=== PATIENT | male | born 1940 | race Caucasian/White ===

== ENCOUNTER 2016-10-15 05:58 | Observation (INO) ==
[2016-10-15] MEDS ORDERED: ceFAZolin 1,000 MG VIAL IRRIG ONE (06:00)
[2016-10-15] MEDS ORDERED: diphenhydrAMINE CAP 25 MG CAPSULE PO ONE (06:00)
[2016-10-15] MEDS ORDERED: SODIUM CHLORIDE 0.9% 1,000 ML IV SCH ×2 (06:00)
[2016-10-15] MEDS ORDERED: DIAZEPAM 5 MG TABLET PO ONE (06:00)
[2016-10-15] MEDS ORDERED: ceFAZolin 1,000 MG VIAL ONE ×2 (06:13→07:19)
--- NOTE | 2016-10-15 06:38 | History and Physical Update ---
Sedation H&P Update - History and Physical H&P was reviewed, the patient examined and there: are no changes in the patients condition since last H&P was completed. - Dictation Physical: refer to scanned H&P - Physical Exam Mental Status: alert and oriented Heart: regular rate and rhythm Lung: clear to auscultation Abdomen: within normal limits Vitals: within normal limits History and Physical Changes: None - Sedation Plan for Sedation: moderate Patient Consent: Procedure disscussed with patient and patinet has consented., Risks and benefits were discussed with patient,including infection,, bleeding, injury to surrounding structures, seizure, temporary nerve, Patient understands and accepts potential risks/benefits and agrees to, proceed. ASA Class: III Airway Assessment: Class III: Soft palate, base of uvula visible
--- NOTE | 2016-10-15 06:38 | Event Note ---
The patient today is for pacemaker generator change and new pacemaker lead. The patient is having issues with stimulation through his old pacemaker lead secondary insulation issues were as discussed previously. Again reviewed the findings with the patient and his reviewing indications of the procedure situation. I reviewed with him how the procedure be carried out the risk. I discussed pacemaker implantation procedure with the patient and available family. I reviewed with them the indications of the procedure as well as the basis of how the procedure itself would be carried out. I also reviewed with them the possible risks which include but not necessarily limited to surgical site bruising pain swelling or pocket hematoma that may require surgical evacuation. Discussed that the pain, swelling, bruising could be significant. Also discussed the possibility of surgical site or pocket infection that may require oral or IV antibiotics or even the possibility of surgical drainage of the pocket or even removal of the pacemaker system. Also discussed the possibility of hemothorax or pneumothorax that may require chest tube and possible blood transfusion. Also discussed the possibility of myocardial perforation that may lead to pericardial tamponade and the need for pericardiocentesis and blood transfusion. They voice understanding and agree to proceed. We will proceed this morning.
[2016-10-15] MEDS ORDERED: DIAZEPAM 5 MG TABLET ONE (06:50)
[2016-10-15] MEDS ORDERED: diphenhydrAMINE CAP 25 MG CAPSULE ONE (06:51)
[2016-10-15] MEDS ORDERED: LIDOCAINE 1% 20 ML VIAL ONE (07:19)
[2016-10-15] MEDS ORDERED: MIDAZOLAM 2 MG/2 ML VIAL ONE ×2 (07:23→07:33)
[2016-10-15] MEDS ORDERED: fentaNYL 100 MCG/2 ML VIAL ONE (07:24)
[2016-10-15] MEDS ORDERED: diphenhydrAMINE 50 MG/1 ML VIAL ONE (07:34)
--- NOTE | 2016-10-15 08:09 | EKG Report ---
Stationary ECG Study [facility] Test Date: 10/15/2016 6:36:25 AM Pat Name: KARIN BURK Department: Room: C006 Gender: M [place] [employer]: : 1940 Requested by: Karin Dickerson Order Number: [id number] Reading MD: JOELLE REYES Intervals [place] Rate: 62 P: 999 PA: 0 QRS: -55 QRSD: 126 T: -29 QT: 432 QTc: 437 Interpretive Statements UNDERTERMINED RHYTHM LEFT ANTERIOR FASCICULAR BLOCK POSSIBLE LATERAL INFARCT, PREVIOUSLY DOCUMENTED Electronically Signed On 10-15-16 18:59:44 CDT by JOELLE REYES [email or web address]
[2016-10-15] MEDS ORDERED: HYDROmorphone 2 MG/1 ML VIAL ONE (08:12)
[2016-10-15] MEDS ORDERED: TISSUE ADHESIVE 1 EACH APPLICATOR TOP ONE (08:26)
--- NOTE | 2016-10-15 08:51 | XRay Report ---
History is follow-up pacemaker Comparison 01/27/2011 Mediastinal contours unchanged with a pacemaker present Calcified left basal granuloma again seen. Skinfold overlies the lateral right chest. No consolidated infiltrate seen Impression: Stable portable chest PROCEDURE INTERPRETED AT [facility] DEPARTMENT OF RADIOLOGY Final Report Signed by: Dr. Bianca Kaur
[2016-10-15] MEDS ORDERED: ACETAMINOPHEN 325 MG TABLET PO PRN (08:58)
--- NOTE | 2016-10-15 08:58 | Operative Note ---
Date of procedure: 10/15/16 Procedure Preformed: Pacemaker generator extraction with placement of new right ventricular lead and implantation of new pacemaker generator. Surgeon / Physician: Adair Collins Account Specialist: Jake Mayorga Post-op diagnosis: same Findings: Right ventricular lead with insulation issues and inappropriate tissue stimulation. Successful generator change and new right ventricular lead placement. Specimens: none sent Estimated blood loss: minimal Condition: stable Anesthesia: local, conscious sedation Disposition: floor
[2016-10-15] MEDS ORDERED: ALUMINUM/MAGNES/SIMETH MAX STR 30 ML UDCUP PO PRN (09:04)
[2016-10-15] MEDS ORDERED: ZALEPLON 5 MG CAPSULE PO PRN (09:04)
--- NOTE | 2016-10-15 09:22 | Cardiac Pacemaker ---
- Preoperative diagnosis Date of Procedure:: 10/15/16 Preoperative Diagnosis: Documented nonreversible symptomatic bradycardia due to , sinus node dysfunction Pre-op Diagnosis: 75-year-old man with sick sinus syndrome due to sinus node dysfunction with symptomatic bradycardia. Patient has right ventricular lead with insulation issue with tissue stimulation. Patient for pacemaker generator change which is 10 years old and RV lead replacement. Post-op diagnosis: same Procedure: History: 75-year-old man who has sick sinus syndrome due to sinus node dysfunction with symptomatic bradycardia. He atrially paces nearly 100% of the time. His ventricular lead though has insulation issue causing tissue stimulation even at unipolar programming. The patient needs a right ventricular lead and new pacemaker generator. 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 Postop diagnosis: As above with successful new generator implantation and new right ventricular lead placement. Procedures: 1. Pacemaker pocket and pacemaker lead fluoroscopy and cinematography. 2. Surgical extraction of pacemaker generator 3. Threshold testing of right atrial lead. 4. Capping of right ventricular lead. 5. Fluoroscopic positioning and implantation of new right ventricular lead. 4. Surgical implantation dual-chamber pacemaker generator left chest. Contrast: None Medications: Preoperative Benadryl and Valium given orally. Lidocaine 18 mls local anesthesia, Versed 4 mgms total IVP; fentanyl 100 mcgs total IVP, Benadryl 50 mg IVP, Dilaudid 2 mg IVP, Ancef 1 gm IVPB, Ancef flush. Estimated blood loss: Minimal Sponge count: Correct Pacemaker equipment: 1. Pacemaker generator extracted: Medtronic Adapta,model # [id number], serial #[id number]. 2. Pacemaker generator inplanted: Medtronic Adapta,model#ADDR 01, serial#[id number]. 3. Atrial lead: Medtronic model#5076-52, serial #[id number]. This is a chronic lead implanted 05/13/2000. Sensed P-wave is 3.4 mv. At a pulse width of 0.5 ms the threshold is 0.4 volts, current 0.6 mA, resistance 476 ohms, slew rate 1.2. 4. Old ventricular lead: Medtronic model#4024- 52, serial#[id number]. This is a chronic lead implanted 05/13/2000. Not interrogated. 5. New ventricular lead: Medtronic model#5076-58, serial# [id number]. This is a chronic lead implanted 10/15/2016. Sensed R-wave is 9.6 mv. At a pulse width of 0.5 ms the threshold is 0.7 volts, current 0.8 mA, resistance 864 ohms, slew rate 2.7. Discription of procedure: After informed consent the patient was given preoperative medication. They were then brought to the catheterization laboratory where their upper chest was prepped and draped in the usual sterile fashion. Patient then received IV sedation. Fluoroscopy and cinematography was used to obtain position of the pacemaker generator and pacemaker leads. Local anesthesia with lidocaine below the left clavicle along the old scar line was administered. Sharp dissection with scalpel was then used to cut through the skin and subcutaneous tissue along the old scar line to the pacemaker pocket. Blunt dissection was used as well especially entering the pocket. At this point the left subclavian vein was cannulated using a micro needle through which the guidewire was advanced over which the pacemaker sheath was then advanced. Through this sheath a new right ventricular lead was then advanced with a stylette in place. The lead was positioned with multiple attempts until we had appropriate thresholds as well as sensing and impedance. Once this was achieved the lead was sutured in position after the sheath was peeled away. At this point the old pacemaker generator was extracted from the pacemaker pocket and disconnected from the pacemaker leads. Antibiotic sponge was placed in the pocket. The atrial lead thresholds were tested and were stable. Final testing of the new right ventricular lead and right atrial lead was carried out and remained stable. The old right ventricular lead was capped. Antibiotic sponge was removed from the pocket and the pocket irrigated with antibiotic solution. The new pacemaker generator was then connected to the ventricular and atrial leads. Each lead was identified by its serial number and then placed into the appropriate header position. Each header set screw was tightened on the appropriate lead and then each lead was tugged on demonstrating it was well seated. Counts were correct. Pacemaker generator was then placed into the pocket and sutured in position with one stitch of 2-0 Ethibond. Pacemaker pocket was then closed using 2 layers of 3-0 Vicryl and one subreticular layer of 4-0 Vicryl. Exofin was used to seal the wound. Patient, tolerated the procedure well and there were no immediate complications. Discussed findings with the patient's family post procedure. Patient was taken to their room on telemetry. Implants: See above Anesthesia: local, moderate conscious sedation Surgeon / Physician: Adair Collins Quality Control Inspector: other (Quintin Mayorga RN) Estimated blood loss: minimal Specimens: none sent Condition: stable Disposition: floor - Medications / Follow-up
--- NOTE | 2016-10-15 09:45 | XRay Report ---
XR chest 1V portable Indication: Lead placement. Chest one view: Comparison 0602 hours. Third pacemaker lead is now present and the generator component has an extra plug. No pneumothorax shown. Normal heart size and interstitial prominence of the lungs are stable. Scattered calcified granulomata are unchanged as well. Impression: Aside from revision of pacemaker device, no change. PROCEDURE INTERPRETED AT [facility] DEPARTMENT OF RADIOLOGY Final Report Signed by: Adair Farris M.D.
--- NOTE | 2016-10-15 14:34 | Event Note ---
Patient doing well post pacemaker implantation. His chest x-ray is stable. The patient is having really no substantial significant pain. Plans to be discharged tomorrow.
--- NOTE | 2016-10-15 16:29 | Discharge Summary ---
Hospital Course - Hospital Course Hospital Course: Patient admitted for pacemaker generator change of placement of new right ventricular lead. The patient has insulation issues with his right ventricular lead with tissue stimulation and discomfort. The patient underwent pacemaker generator change and placed in the right ventricular lead without any complications. Patient done well post procedure. He discussed the patient's activities etc. with him. He will keep follow-up with me within 2 weeks. I saw Mr. Zambrano the morning after his pacemaker implant. He was without complaint he had mild tenderness over his access site but the site looked excellent. His chest x-ray was reviewed it looks good. He has handwritten prescription by Dr. Collins for his pain medicine. We will discharge home and follow-up as ordered. Diagnosis - Discharge Diagnosis (1) Pacemaker lead malfunction Status: Acute (2) Sick sinus syndrome due to SA node dysfunction Status: Chronic (3) Bradycardia Status: Chronic (4) Dyslipidemia Status: Chronic (5) Hypertension Status: Chronic Specialty Discharge - Follow Up or Referrals Follow up with: Adair Collins MD [Physician] - 10/29/16 8:20 am Discharge Plan - Discharge Data Disposition: Disch To Home/Self Care Condition at Discharge: Stable Discharge Diet: heart healthy Activity: other (Do not lift left hand above shoulder nor the elbow away from the body core for 2 weeks.) Hygiene: other (Do not get pacemaker site wet for 4 days after which may allow water and shower to briefly run over the wound. Do not soak pacemaker site or allow shower water to directly strike the wound for 2 weeks.) Weight Bearing at Discharge: full weight bearing Driving: not for (For 2 weeks.) Contact your physician if you experience:: fever over 101, Redness or swelling, Shortness of breath - Discharge Medications New Hydrocodone/Acetaminophen [Flushing 10-325 Tablet] 1 each PO Q4-6H PRN #20 tablet PRN Reason: Pain Mild To Moderate (1-7) Continue Escitalopram [Lexapro] 20 mg PO DAILY Calcium (Citrate) [Citracal] 200 mg PO DAILY Multivitamin [Multivitamins] 1 each PO DAILY Cyanocobalamin (Vitamin B-12) [Vitamin B12] 2,500 mcg PO DAILY - Follow Up or Referral Follow Up: Adair Collins MD [Physician] - 10/29/16 8:20 am - Forms/Instructions Instructions: Pacemaker (DC), Chronic Hypertension (DC) Exam - Constitutional Vitals: Period Temp Pulse Resp BP Sys/[place] Pulse Ox Last 24 Hr 96.6 F-98.7 F 61-70 18-20 93-168/47-89 91-98 Exam: General appearance: Alert cooperative no distress. HEENT: Atraumatic. Neck: Supple without JVD or bruits. Lungs: Clear without rales or wheezes. Cardiovascular regular rate and rhythm without murmur gallop or rub. Chest wall: Pacemaker site left chest is stable. Abdomen: Soft nontender with normal bowel sounds. Extremities: No edema or deformities. Neurologic: Alert cooperative without deficits. Psychiatric: Cognitive function is grossly intact. Skin: Intact. Discharge Results Procedures and tests throughout hospitalization: Pending Orders 10/15/16 06:00 CL pacemaker Routine Successful pacemaker generator change and RV lead placement with capping of the old lead. DS: Provider Date of admission: 10/15/16 08:58 Primary care physician: Evelina Bhatti MD Attending physician on admission: Mann Gottlieb Discharging clinician: Mann Gottlieb Expected date of discharge: 10/15/16
[2016-10-15] MEDS: IBUPROFEN 400 MG TABLET PO PRN (16:33)
[2016-10-16] MEDS: IBUPROFEN 400 MG TABLET PO PRN (06:05)
--- NOTE | 2016-10-16 07:28 | EKG Report ---
Stationary ECG Study [facility] Test Date: 10/16/2016 7:28:03 AM Pat Name: KARIN BURK Department: Room: 268 Gender: M Hospital Nurse Liaison: : 1940 Requested by: Karin Dickerson Order Number: [id number] Reading MD: BILLIE PALMER Intervals [place] Rate: 64 P: 27 TN: 175 QRS: 48 QRSD: 155 T: -85 QT: 475 QTc: 484 Interpretive Statements ELECTRONIC ATRIAL PACEMAKER ELECTRONIC VENTRICULAR PACEMAKER ABNORMAL RHYTHM ECG Electronically Signed On 10-18-16 10:52:46 CDT by BILLIE PALMER [email or web address]
[2016-10-16 07:37] VITALS: BP 126/89
--- NOTE | 2016-10-16 07:59 | XRay Report ---
Exam: XR chest 2V Date: 10/16/2016 4:00 AM Indication: Lead placement Comparison: None Technical: 10/15/2016 Findings: Cardiac pacing device and placement left-sided approach with atrial ventricular leads. Small calcified granuloma in the left base measures approximate 5 mm. Small nodes in the mediastinum. ASVD is present. Degenerative change present thoracic spine. No obvious infiltrates or effusions. Impression: 1. Stable appearance the cardiac pacer device 2. Granuloma changes 3. No acute cardiopulmonary pathology PROCEDURE INTERPRETED AT [facility] DEPARTMENT OF RADIOLOGY Final Report Signed by: Dr. Dar Smith
[2016-10-16] MEDS ORDERED: MULTIVITAMIN (CENTRUM) TABLET PO SCH (09:00)
[2016-10-16] MEDS ORDERED: ESCITALOPRAM 10 MG TABLET PO SCH (09:00)
[2016-10-16] MEDS ORDERED: CYANOCOBALAMIN 500 MCG TABLET PO SCH (09:00)
[2016-10-16] MEDS ORDERED: CALCIUM (CITRATE) 200 MG TABLET PO SCH (09:00)
== END 2016-10-16 10:34 | disposition home or self-care (01) ==
LOC: N.TELES 05:58 → N.CL 05:58 → N.TELES 09:12
PROVIDERS: ADMIT Internal Medicine Cardiovascular Disease; ATTEND Internal Medicine Cardiovascular Disease

== ENCOUNTER 2020-05-14 11:34 | Observation (INO) ==
[2020-05-14] MEDS ORDERED: SODIUM CHLORIDE 0.9% 1,000 ML IV STA (12:12)
[2020-05-14] MEDS ORDERED: LEUCOVORIN TAB 5 MG TABLET PO SCH (13:00)
[2020-05-14] MEDS ORDERED: LEUCOVORIN IV ONE (13:10)
[2020-05-14] MEDS ORDERED: DEXTROSE 5% IV ONE (13:10)
[2020-05-14 13:11] LABS: Basophils % 0.8 % (0.0-0.8); Eosinophils # 0.1 10*3/uL (0.0-0.87); Eosinophils % 3.4 % (0.00-10.9); Hematocrit 33.9 VOL% (42.0-52.0); Hemoglobin 10.9 GM/DL (14.0-18.0); Immature Granulocytes % 0.3 %; Immature Granulocytes Absolute 0.01 #; Lymphocytes # 1.1 10*3/uL (1.4-4.0); Lymphocytes % 29.2 % (21.2-54.2); Mean Corpuscular HGB Conc 32.2 GM/DL (32-36); Mean Corpuscular Volume 97.7 FL (87-102); Mean Platelet Volume 9.4 FL (9.6-12.0); Monocytes % 2.9 % (1.7-12.7); Neutrophils % 63.4 % (38.7-73.9); Platelet Count 153 T/CUMM (130-400); Red Blood Count 3.47 MC/CUMM (3.8-5.5); Red Cell Distribution Width 12.5 % (9.3-17.3); White Blood Count 3.8 T/CUMM (4-12)
[2020-05-14 13:35] LABS: Albumin 3.3 G/DL (3.4-5.0); Bilirubin,Total 0.5 MG/DL (0.2-1.0); Calcium 8.7 MG/DL (8.5-10.1); Osmolality,Calculated 281.3 MOS/KG (273-304); Potassium 4.4 MMOL/L (3.5-5.1)
[2020-05-14] MEDS ORDERED: DEXTROSE 50% 25 GM/50 ML VIAL IV PRN (14:49)
[2020-05-14] MEDS ORDERED: GLUCAGON 1 MG VIAL IM PRN (14:49)
[2020-05-14] MEDS ORDERED: DOCUSATE SODIUM 100 MG CAPSULE PO PRN (14:49)
[2020-05-14] MEDS ORDERED: ONDANSETRON 4 MG/2 ML VIAL IV PRN (14:49)
[2020-05-14] MEDS ORDERED: ACETAMINOPHEN 325 MG TABLET PO PRN (14:49)
[2020-05-14 15:34] LABS: Bilirubin,Urine Negative (Negative); Blood, Urine Negative (Negative); Glucose,Urine (UA) Negative (Negative); Hyaline Casts,Urine 4 /LPF (0-3); Ketones,Urine 5 mg/dL (Negative); Mucus,Urine Occasional /LPF (Occasional); Nitrite,Urine Negative (Negative); Protein,Urine Negative; RBC,Urine 1 /HPF (0-4); Urine Appearance CLEAR (Clear); Urine Color Yellow (Yellow); Urine Specific Gravity 1.011 (1.001-1.035); Urine Urobilinogen < 2.0 EU/DL (0.2-1.0); WBC,Urine <1 /HPF (0-6)
[2020-05-14] MEDS ORDERED: DEXTROSE 5% IV SCH (19:00)
[2020-05-14] MEDS ORDERED: LEUCOVORIN IV SCH (19:00)
[2020-05-14] MEDS: SODIUM CHLORIDE 0.9% 1,000 ML IV SCH (19:45)
[2020-05-14] MEDS: ENOXAPARIN 40 MG/0.4 ML SYRINGE SUBCUT SCH (20:48)
[2020-05-14] MEDS: LIDOCAINE 2% VISCOUS 100 ML BOTTLE SWISH/SPIT PRN (20:49)
[2020-05-15] MEDS: LEUCOVORIN IV SCH ×4 (02:30→21:23)
[2020-05-15] MEDS: DEXTROSE 5% IV SCH ×4 (02:30→21:23)
[2020-05-15] MEDS: LIDOCAINE 2% VISCOUS 100 ML BOTTLE SWISH/SPIT PRN ×2 (02:30→09:04)
[2020-05-15 04:02] LABS: Basophils % 0.7 % (0.0-0.8); Eosinophils # 0.3 10*3/uL (0.0-0.87); Eosinophils % 10.9 % (0.00-10.9); Hematocrit 31.3 VOL% (42.0-52.0); Hemoglobin 10.3 GM/DL (14.0-18.0); Lymphocytes # 1.4 10*3/uL (1.4-4.0); Lymphocytes % 50.5 % (21.2-54.2); Mean Corpuscular HGB Conc 32.9 GM/DL (32-36); Mean Corpuscular Volume 96.9 FL (87-102); Mean Platelet Volume 9.8 FL (9.6-12.0); Neutrophils % 33.9 % (38.7-73.9); Platelet Count 145 T/CUMM (130-400); Red Blood Count 3.23 MC/CUMM (3.8-5.5); Red Cell Distribution Width 12.3 % (9.3-17.3)
[2020-05-15 04:03] LABS: White Blood Count 2.8 T/CUMM (4-12)
[2020-05-15 04:17] LABS: Atypical Lymphocytes Few; Eosinophils 15 % (0-10); Hypochromasia 1+; Lymphocytes 42 % (20-55); Segmented Neutrophils 38 % (50-85); Total Cells Counted 100
[2020-05-15 04:18] LABS: Microcytosis Slight; Platelet Estimate Adequate
[2020-05-15 04:21] LABS: Albumin 2.9 G/DL (3.4-5.0); Bilirubin,Direct 0.12 MG/DL (0.0-0.20); Bilirubin,Indirect 0.5 MG/DL (0.0-1.0); Bilirubin,Total 0.6 MG/DL (0.2-1.0); Total Protein 6.2 G/DL (6.4-8.2)
[2020-05-15 04:32] LABS: Calcium 8.4 MG/DL (8.5-10.1); Risk Ratio 2.76; Thyroid Stimulating Hormone 1.43 uIU/ml (0.358-3.74); VLDL CHOLESTEROL 13.2 MG/DL
[2020-05-15] MEDS: PANTOPRAZOLE 40 MG TABLET PO SCH (09:04)
[2020-05-15] MEDS: MYLANTA/LIDO VISC/NYST 180 ML BOTTLE SWISH/SWAL PRN ×2 (11:27→21:24)
[2020-05-15] MEDS: SODIUM CHLORIDE 0.9% 1,000 ML IV SCH ×3 (11:37→22:24)
[2020-05-15] MEDS: NON-FORMULARY MEDICATION (Lactobacillus Combination No.4 [Probiotic] 3 billion cell Capsul PO SCH (13:58)
[2020-05-15] MEDS: FOLIC ACID 1 MG TABLET PO SCH (14:16)
[2020-05-15] MEDS: CYANOCOBALAMIN 500 MCG TABLET PO SCH (14:16)
[2020-05-15] MEDS: ESCITALOPRAM 10 MG TABLET PO SCH (14:16)
[2020-05-15] MEDS: MULTIVITAMIN (CENTRUM) TABLET PO SCH (14:17)
[2020-05-15] MEDS: ENOXAPARIN 40 MG/0.4 ML SYRINGE SUBCUT SCH (21:23)
[2020-05-16] MEDS: DEXTROSE 5% IV SCH ×2 (03:35→09:33)
[2020-05-16] MEDS: LEUCOVORIN IV SCH ×2 (03:35→09:33)
[2020-05-16 06:48] LABS: Basophils % 1.3 % (0.0-0.8); Eosinophils # 0.3 10*3/uL (0.0-0.87); Eosinophils % 12.6 % (0.00-10.9); Hematocrit 33.2 VOL% (42.0-52.0); Lymphocytes % 44.8 % (21.2-54.2); Mean Corpuscular HGB Conc 33.1 GM/DL (32-36); Mean Corpuscular Volume 95.1 FL (87-102); Mean Platelet Volume 9.8 FL (9.6-12.0); Monocytes % 6.1 % (1.7-12.7); Neutrophils % 35.2 % (38.7-73.9); Platelet Count 126 T/CUMM (130-400); Red Blood Count 3.49 MC/CUMM (3.8-5.5); Red Cell Distribution Width 12.3 % (9.3-17.3); White Blood Count 2.3 T/CUMM (4-12)
[2020-05-16 07:02] LABS: Calcium 8.6 MG/DL (8.5-10.1)
[2020-05-16 07:22] LABS: Albumin 3.1 G/DL (3.4-5.0); Bilirubin,Direct 0.1 MG/DL (0.0-0.20); Bilirubin,Indirect 0.3 MG/DL (0.0-1.0); Bilirubin,Total 0.4 MG/DL (0.2-1.0); Total Protein 6.5 G/DL (6.4-8.2)
[2020-05-16 07:23] LABS: Anisocytosis 1+; Band Neutrophils 4 % (0-10); Eosinophils 12 % (0-10); Lymphocytes 49 % (20-55); Macrocytosis 1+; Platelet Estimate Adequate; Segmented Neutrophils 31 % (50-85); Total Cells Counted 100
[2020-05-16] MEDS ORDERED: DEXTROSE 5% IV SCH (09:30)
[2020-05-16] MEDS ORDERED: LEUCOVORIN IV SCH (09:30)
[2020-05-16] MEDS: ESCITALOPRAM 10 MG TABLET PO SCH (09:33)
[2020-05-16] MEDS: FOLIC ACID 1 MG TABLET PO SCH (09:33)
[2020-05-16] MEDS: MULTIVITAMIN (CENTRUM) TABLET PO SCH (09:33)
[2020-05-16] MEDS: CYANOCOBALAMIN 500 MCG TABLET PO SCH (09:33)
[2020-05-16] MEDS: NON-FORMULARY MEDICATION (Lactobacillus Combination No.4 [Probiotic] 3 billion cell Capsul PO SCH (09:34)
[2020-05-16] MEDS: PANTOPRAZOLE 40 MG TABLET PO SCH (09:34)
[2020-05-16] MEDS ORDERED: LIDOCAINE 2% VISCOUS 100 ML BOTTLE SWISH/SWAL PRN (10:08)
[2020-05-16] MEDS: SODIUM CHLORIDE 0.9% 1,000 ML IV SCH (10:47)
[2020-05-16 11:46] VITALS: BP 163/88
== END 2020-05-16 15:49 | disposition home or self-care (01) ==
LOC: N.EDINP 11:34 → N.ED 11:34 → N.4E 16:45
PROVIDERS: ADMIT Family Medicine; ATTEND Family Medicine